=== PATIENT | male | born 1965 | race Caucasian/White ===

== ENCOUNTER 2017-01-23 21:51 | Emergency (ER) | payer OTHER ==
[~2017-01-23] VITALS: Ht 177.8 cm; Wt 97.5 kg
--- NOTE | ~2017-01-23 | EKG ---
[address] [address] ELECTROCARDIOGRAM REPORT Name: CANELO PERALTA Room #: DEP NICOLE Arzola#: [id number] Admission: 01/23/17 Attend Phys: Discharge: 01/24/17 Date of : 65 Report #: [id number] THIS REPORT FOR: //name// [facility] ED Test Date: 2017-01-23 Test Time: 22:17:51 Pat Name: CANELO PERALTA Department: Room: Gender: Optician Manager: MALIHA : 1965 Requested By: Kobe Stern Order Number: [id number] MD: Remigio Rich Measurements Intervals [place] Rate: 87 P: 74 RI: 154 QRS: -34 QRSD: 96 T: 56 QT: 357 QTc: 430 Interpretive Statements Sinus rhythm Left axis deviation Compared to ECG 12/06/2015 08:57:48 No significant changes Electronically Signed On 01-24-2017 11:20:34 [employer]PERATIONS MANAGER by Remigoi Rich [email or web address] <ELECTRONICALLY SIGNED> By: Remigio Rich MD 01/24/17 1120 2217 16 Remigio Rich MD /[email or web address]
[~2017-01-23 21:51] MED LIST: ASPIR 8181 M1 PO
[2017-01-23] MEDS ORDERED: LEXAPRO 10 MG T10 MG PO (21:58)
[2017-01-23] MEDS ORDERED: VENTOLIN HFA 1818 GM INH (21:59)
[2017-01-23 22:19] LABS: BASOPHILS 0.6 % (0.0-2.0); EOSINOPHILS 3.7 % (0.0-3.0); HEMATOCRIT 43.7 % (42.0-52.0); HEMOGLOBIN 15.2 gm/dL (14.0-18.0); LYMPHOCYTES 24.7 % (24.0-44.0); MCH 31.2 pg (26.0-34.0); MCHC 34.8 g/dL (28.0-37.0); MCV 89.7 fL (80.0-100.0); MONOCYTES 9.1 % (1.0-8.0); PLATELET COUNT 222 thou/uL (150-400); POLYS 61.9 % (36.0-66.0); RBC 4.88 mil/uL (4.50-6.00); RDW 13.7 % (10.5-14.5); WBC 6.5 thou/uL (4.0-11.0)
[2017-01-23 22:20] LABS: MANUAL DIFF NO
[2017-01-23 22:24] LABS: ANION GAP 7 mmol/L (7-16); BUN 11 mg/dL (7-18); CALCIUM 8.6 mg/dL (8.5-10.1); CHLORIDE 104 mmol/L (98-107); CO2 26 mmol/L (21-32); CREATININE 1.1 mg/dL (0.7-1.3); GLUCOSE 132 mg/dL (74-106); POTASSIUM 3.5 mmol/L (3.5-5.1); SODIUM 137 mmol/L (136-145)
[2017-01-23 22:33] LABS: TROPONIN-I < 0.04 ng/mL (<0.06)
[2017-01-24] MEDS ORDERED: PREDNISONE 20 M20 MG PO (00:07)
[2017-01-24] MEDS ORDERED: LEVAQUIN 750 M750 MG PO (00:07)
[2017-01-24 00:21] VITALS: BP 122/77
== END 2017-01-24 00:23 | disposition home or self-care (01) ==
LOC: ER 21:51
PROVIDERS: Physician Assistant
DX: J18.9 Pneumonia, unspecified organism (principal); J45.909 Unspecified asthma, uncomplicated; F17.210 Nicotine dependence, cigarettes, uncomplicated; Z88.0 Allergy status to penicillin